=== PATIENT | female | born 1965 | race Caucasian/White ===

== ENCOUNTER 2016-11-17 20:12 | Inpatient (IN) | payer MEDICAID ==
[~2016-11-17] VITALS: Ht 167.6 cm; Wt 92.7 kg
--- NOTE | ~2016-11-17 | HP ---
PATIENT'S NAME: ISAIAS ESPINOZA [facility] AGE: 51 Y [address] ROOM: [id number] [place], [place] [address] LOCATION: GPCU ADMIT DATE: 11/17/2016 History & Physical DISCHARGE DATE: FAMILY PHYSICIAN: PHYSICIAN, UNKNOWN ATTENDING PHYSICIAN: MAGGI GOODMAN DATE OF SERVICE: CHIEF COMPLAINT: Polysubstance abuse and overdose with a suicide attempt. HISTORY OF PRESENT ILLNESS: This is a 51-year-old female who currently is lethargic and sleeping and cannot give any reliable history. The story is obtained from the medical chart and from the sign out given by the outside provider during the transfer. The story is that the patient has a long history of depression with multiple suicide attempts in the past from drug overdose. This time, patient was found by somebody at her home on the floor, drowsy, and confused, and the patient was brought to the outside facility for evaluation in [place]. Over there, on arrival, the patient was restless and combative requiring multiple doses of Ativan, where she got a total of 12 mg Ativan and then she got a CT of the head, which was unremarkable. Urine drug screen show she tested positive for marijuana, amphetamine, and methamphetamine. The patient was brought here for further care. Poison Control was already contacted by the outside provider and plan of care will be treating for amphetamine intoxication as well as possible Seroquel intoxication given that the patient has a history of taking Seroquel at home and has taken in excess in the past for suicidal attempts in the past. REVIEW OF SYSTEMS: Cannot obtain a full review of systems given that the patient is drowsy and sleepy right now and does not want to answer any questions. The review of system given to us by outside provider during transfer is that patient was combative and confused on arrival and after 12mg of ativan, patient became calm and sleepy. PAST MEDICAL HISTORY: 1. Hepatitis B and hepatitis C, not on treatment, follow up outpatient with primary care provider. 2. History of rectal carcinoma on chemotherapy and radiation. 3. Chronic lower back pain and chronic abdominal pain on opioids at home. 4. Depression. 5. Anxiety disorder. 6. Bipolar disorder. ALLERGIES: [facility] 51 Y [address] ROOM: [address] [place] [id number] LOCATION: GPCU ADMIT DATE: 11/17/2016 History & Physical DISCHARGE DATE: FAMILY PHYSICIAN: PHYSICIAN, UNKNOWN ATTENDING PHYSICIAN: MAGGI GOODMAN PENICILLIN, TRAMADOL, MELOXICAM, AND CEPHALOSPORIN, ALL THIS MEDICATION CAUSED HIVES. HOME MEDICATIONS: Currently, it is being reconciled. SOCIAL HISTORY: The patient is active cigarette smoker about half-pack per day for many years and denies any alcohol or any illegal drugs; however, she tested positive for amphetamine and also methamphetamine and marijuana on admission. FAMILY HISTORY: Father from suicide attempt and mother from brain aneurysm. PAST SURGICAL HISTORY: 1. Right knee surgery in the past. 2. Cholecystectomy. 3. Hysterectomy. PHYSICAL EXAMINATION: VITAL SIGNS: At the time of evaluation, respiration were 11, temperature was 98, blood pressure was 136/87, heart rate was 80, and saturation was 97% on 3 L nasal cannula. GENERAL APPEARANCE: The patient is sleepy and drowsy and would open her eyes to sternal rub. No facial droop. HEENT: Pupils about 3 mm bilaterally equal size and reactive to light. Anicteric sclerae. Nasal turbinates are normal bilaterally. Moist oral mucosa. NECK: No JVD. CARDIOVASCULAR. Regular rate and rhythm. Normal S1, S2. No murmur, no rubs, no gallops. RESPIRATORY: Clear. Chest wall nontender to palpation. No rales, no rhonchi, no wheezing, no crackles. ABDOMEN: Obese, soft, nontender, nondistended, bowel sounds present, and no mass. EXTREMITIES: No edema in upper or lower extremities. NEUROLOGICAL: The patient is sleepy and drowsy. Opens eyes to sternal rub, but does not want to talk and does not want to answer questions. There is no facial droop. There is no slurred speech when she does speak. Overall, I cannot perform a full neurological exam given that the patient does not cooperate. LABORATORY DATA: Currently, our labs are pending. Labs from the outside facility show a PATIENT'S NAME: ISAIAS ESPINOZA [facility] AGE: 51 Y [address] ROOM: [address] [address] LOCATION: GPCU ADMIT DATE: 11/17/2016 History & Physical DISCHARGE DATE: FAMILY PHYSICIAN: PHYSICIAN, UNKNOWN ATTENDING PHYSICIAN: MAGGI GOODMAN magnesium 1.3, lactic acid 2.4, aspirin level 3.5, Tylenol level 0, alcohol less than 3. INR 1.24. Urine drug screen positive for amphetamine, methamphetamine, and also marijuana. PTT 29.1, glucose 81, BUN 20, creatinine 1.12, total protein 7.3, albumin 3.7, calcium 9.0, total bilirubin 1.6, ALT 45, AST 63, sodium 136, potassium 3.4, chloride 100, CO2 20.7, GFR more than 60, anion gap 18.7, and alkaline phosphatase 82. CK-MB 14.4, troponin less than 0.02, myoglobin 498, and CPK 1080. White blood cells 18.06, hemoglobin 13.1, hematocrit 36.9, and platelet 234. IMAGING STUDIES: 1. EKG from the outside facility show QRS widening more than 120. Here a repeat EKG on arrival on November 17, 2016, at 11:02 p.m. shows sinus rhythm, heart rate of 94, QRS normal at 90 milliseconds, QTc normal at 436 milliseconds, NM normal at 141 milliseconds. No acute ischemic changes. 2. CT scan of the head without contrast performed from the outside facility on admission showed mild age-appropriate atrophy. No acute intracranial abnormality. ASSESSMENT AND PLAN: 1. Regarding her acute encephalopathy from polysubstance abuse from suicidal attempt from amphetamine overdose as well as perhaps also Seroquel, which is her home medication: Touch base with Poison Control. The plan will be supportive care with monitoring of EKG. We will be checking 3 times at later time to make sure there is no QRS prolongation from possible seroquel overdose. If there is QRS prolongation of more than 120 milliseconds then the treatment will need intravenous sodium bicarbonate drip. ETCO2 monitoring. Intravenous fluids for hydration. The QRS prolongation is a complication from the Seroquel overdose. EKG monitoring is also to check for QTC prolongation from seroquel. In regarding intoxication of amphetamine will be supportive care with telemetry monitoring and correct electrolytes to keep the potassium and magnesium within normal limits. We will check the liver function testing again at a later time. Also, I will check one more time of Tylenol and aspirin level at later time as well. Further plan will depend on clinical course. Also, Psychiatric consult for suicidal attempt evaluation. Suicidal precaution with one-on-one sitter in the room at all times. 2. Probable tardive dyskinesia: She exhibits symptoms consistent with tardive dyskinesia with involuntary tongue and body movements. Looking at her home medications, she chronically takes seroquel and has had several overdosing on seroquel in past as well. half-way use of seroquel could contribute to her symptoms likely consistent with tardive dyskinesia however seroquel is one of the antipsychotics along with clozapine to have the least incidence of TD but certainly still possible because it is an antipsychotic. May have to avoid antipsychotics or taper down. Will defer to psychiatry for evaluation and further management. Will use ativan or/and valium or/and clonazepam for agitation control. Will have to be cautious with seroquel since patient has had seroquel overdose in past for suicidal attempt and this time we are monitoring QRS for possible seroquel overdose again. May try trihexyphenidyl (anticholinergic) in patient with severe TD symtpoms refractory to benzodiazepines. Pending psychiatry consultation for further management. 3. Regarding her acute kidney injury from rhabdomyolysis: Intravenous fluids for hydration and this will fix the rhabdomyolysis. Flood catheter for strict urinary output monitoring. 4. Regarding her leukocytosis: Will get UA. The patient does not seem to be septic. We will check lactic acid and also procalcitonin. The leukocytosis is likely from the stress from polysubstance abuse and restless state. 5. Regarding her depression: Defer to Psychiatry for evaluation. PATIENT'S NAME: ISAIAS ESPINOZA [facility] AGE: 51 Y [address] ROOM: [place] [address] [facility] ADMIT DATE: 11/17/2016 History & Physical DISCHARGE DATE: FAMILY PHYSICIAN: PHYSICIAN, UNKNOWN ATTENDING PHYSICIAN: MAGGI GOODMAN 6. Regarding her anxiety disorder: The patient got a total of 12 mg of intravenous Ativan. She does take the Klonopin at home; therefore, I am not going to use flumazenil given that in the chronic benzodiazepine user if we give flumazenil can trigger seizure; therefore, I will avoid flumazenil at all cost. Currently, the patient is sleepy; therefore, I will avoid anymore narcotics, antipsychotic, or benzodiazepine. 7. Regarding her deep vein thrombosis prophylaxis: The patient will be on heparin subcutaneous 3 times a day. 8. She is a full code. 9. In addition, I will check a venous blood gas to if she is acidotic. Time spent in care on the day of admission 50 minutes, where 15 minutes was spent on chart review and the remainder of time spent in interview, physical examination, and also on counseling and also coordination of care with the Poison Control. I answered all the questions and concerns that the patient had and also I also went over the plan of care in detail with the nurse. Further plan will depend on clinical course. MD BARBARA BRUNER/shakira /[id number] D: [id number] T: [id number] HISTORY & PHYSICAL
--- NOTE | ~2016-11-17 | DS ---
PATIENT'S NAME: ISAIAS ESPINOZA [facility] AGE: 51 Y [address] ROOM: [place] [address] LOCATION: GPCU ADMIT DATE: 11/17/2016 Discharge Summary DISCHARGE DATE: 11/21/2016 FAMILY PHYSICIAN: Tiburcio Cordova MD ATTENDING PHYSICIAN: Shemar Loza PRIMARY DIAGNOSES: 1. Drug overdose, accidental. 2. Acute encephalopathy. 3. Polysubstance dependence. 4. Methamphetamine intoxication. 5. Chronic pain syndrome. 6. Opioid dependence. 7. Depression and anxiety. 8. Bipolar disorder. 9. Rectal cancer, status post chemotherapy and radiation treatment. 10. Hepatitis B, by history. 11. Hepatitis C, by history, untreated. 12. Obesity. 13. Moderate protein-calorie malnutrition. OPERATIONS/PROCEDURES: None. HISTORY OF PRESENTING ILLNESS AND REASON FOR ADMISSION: Please refer to the H and P dictated on 11/17/2016. HOSPITAL COURSE: The patient was admitted to the hospital as noted above with a presumptive diagnosis of drug overdose and associated acute encephalopathy. Initial drug screening revealed presence of opiates, THC, and methamphetamine. She does have a previous history of suicidal thinking and multiple previous suicide attempts. Clinical condition was initially stable. She did receive aggressive supportive cares. The Poison Control Center had been contacted. She received a variety of interventions including IV benzodiazepine therapy, Klonopin, and Valium. This was eventually Streamlined to IV Ativan only. She did also receive atypical antipsychotic therapy with IM Zyprexa. Oral trihexyphenidyl had been initiated, although this was stopped by day 2 of her hospital stay. She was hemodynamically stable over the course of her hospital stay. She was persistently lethargic for around 48 hours, but gradually became more arousable. By the third day, she was felt to be essentially at baseline. She was complaining of ongoing back pain and there was some concern for opioid withdrawal. She did receive some MS Contin, but this was changed back to her PATIENT'S NAME: ISAIAS ESPINOZA [facility] AGE: 51 Y [address] ROOM: [place] [address] LOCATION: GPCU ADMIT DATE: 11/17/2016 Discharge Summary DISCHARGE DATE: 11/21/2016 FAMILY PHYSICIAN: Tiburcio Cordova MD ATTENDING PHYSICIAN: Shemar Loaz home regimen of fentanyl transdermal patch. She requested an increase to her usual dose of 75 mcg and seemed to tolerate that well. By the end of the fourth day of her hospital stay, it was felt she would be stable enough for discharge to home with plans for close clinical followup with the primary care provider for ongoing pain of her chronic pain syndrome and opiate dependence as well as consideration for substance abuse treatment. We did request Psychiatry consultation here. After the patient became arousable, she denied any suicidal thinking, suicidal ideation, and flatly denied that she had intentionally overdosed on her medications. She did not discount the possibility that she could have accidentally received methamphetamine from one of her associates, but that she did not ingest this intentionally. She refused Psychiatry evaluation and refused inpatient psychiatric care. DISCHARGE INSTRUCTIONS: DIET: Regular as tolerated. ACTIVITY: As tolerated. MEDICATIONS: 1. Fentanyl transdermal patch 75 mcg, apply and change q.72 hours as needed for pain. 2. Duloxetine 60 mg p.o. daily. 3. Levothyroxine 50 mcg p.o. daily. 4. Lorazepam 0.5 mg p.o. t.i.d. p.r.n. for anxiety. 5. Zofran 4 mg p.o. q.i.d. p.r.n. for nausea. 6. Nicotine transdermal patch 21 mg, apply and change daily. 7. Bentyl 20 mg p.o. q.i.d. 8. Acetaminophen 650 mg p.o. q.4 hours p.r.n. for pain or fever. FOLLOWUP: She will follow up with Dr. Cordova in 3 to 5 days. CONDITION ON DISCHARGE: Fair. Total time spent on discharge process 45 minutes. MD LISA JOSEPH/shakira PATIENT'S NAME: ISAIAS ESPINOZA [facility] AGE: 51 Y [address] ROOM: [id number] [place], [place] [address] LOCATION: GPCU ADMIT DATE: 11/17/2016 Discharge Summary DISCHARGE DATE: 11/21/2016 FAMILY PHYSICIAN: Tiburcio Cordova MD ATTENDING PHYSICIAN: Shemar Loza /[id number] d: 11/22/16 0359 t: 11/23/16 1440, DISCHARGE SUMMARY
[~2016-11-17 20:12] MED LIST: ATIVAN 0.5MG0.5 MG PO; BACTRIM DS1 TAB PO; BENEFIBER1 EAC1 PO; BENTYL20 MG PO; CYMBALTA60 MG PO; DESYREL50 MG PO; DILAUDID 4MG4 MG PO; DURAGESIC1 EAC1 TRANS; KLONOPIN0.5 MG PO; KLONOPIN1 M1 PO; LEVOTHROID (SY50 MCG PO; LYRICA 50MG CAP50 MG PO; MINIPRESS2 MG PO; MS CONTIN15 MG PO; MS CONTIN30 MG PO; MS CONTIN60 MG PO; NICODERM (HABIT14 MG TRANS; NICODERM / HABIT7 MG TRANS; NICODERM/HABITR21 MG TRANS; QUETIAPINE FUM100 MG PO; RISPERDAL1 MG PO; ROBAXIN750 MG PO; SEROQUEL100 MG PO; SEROQUEL25 MG PO; SEROQUEL300 MG PO; SEROQUEL50 MG PO; SSD (THERMAZENE25 GM TOP; VISTARIL50 MG PO; ZOFRAN4 MG PO
[2016-11-17 23:32] LABS: BILIRUBIN URINE NEGATIVE (NEGATIVE); BLOOD URINE 10 /UL (NEGATIVE); COLOR URINE YELLOW (YELLOW); GLUCOSE URINE NEGATIVE (NEGATIVE); KETONE URINE 50 mg/dL (NEGATIVE); LEUKOCYTES URINE NEGATIVE /UL (NEGATIVE); NITRITE URINE NEGATIVE (NEGATIVE); PROTEIN URINE 15 mg/dL (NEGATIVE); TURBIDITY URINE CLEAR (CLEAR); UROBILINOGEN URINE NORMAL (NORMAL)
[2016-11-17 23:43] LABS: GRANULAR CASTS URINE RARE #/LPF (NEGATIVE); HYALINE CAST URINE RARE #/LPF (NEGATIVE)
[2016-11-17 23:46] LABS: BACTERIA URINE NEGATIVE (NEGATIVE); EPITHELIAL URINE 0-2 #/HPF (NEGATIVE); RBC URINE 0-2 #/HPF (NEGATIVE); WBC URINE 0-2 #/HPF (NEGATIVE)
[2016-11-17 23:52] LABS: AMPHETAMINE POSITIVE (NEGATIVE); BARBITURATE NEGATIVE (NEGATIVE); COCAINE NEGATIVE (NEGATIVE); OPIATES NEGATIVE (NEGATIVE)
[2016-11-17 23:58] LABS: BICARBONATE 24.1 mmol/L (18.0-23.0); LACTATE 0.9 mEq/L (0.50-1.60); PCO2 49 mmHg (35-45); PO2 118 mmHg (80-90)
[2016-11-17 23:59] LABS: BASOPHIL % 0.3 %; EOSINOPHIL % 0.1 %; HEMATOCRIT 35.2 % (33.0-46.0); HEMOGLOBIN 12.5 g/dL (10.0-15.0); IMMATURE GRANULOCYTE # 0.1 K/uL (0.0-0.3); IMMATURE GRANULOCYTE % 0.5 %; LYMPHOCYTE # 2.4 K/uL (0.8-4.0); LYMPHOCYTE % 15.5 %; MCHC 35.5 gm/dL (32.0-36.5); MCV 92.9 fl (83.0-98.0); MONOCYTE # 1.6 K/uL (0.0-1.0); MONOCYTE % 10.5 %; NEUTROPHIL # (ANC) 11.1 K/uL (1.8-7.8); NEUTROPHIL % 73.1 %; NRBC % 0 /100WBC (0-0.00); RBC 3.79 M/uL (3.50-5.50); RDW-CV 12.8 % (11.9-14.6); WBC 15.2 K/uL (4.0-11.0)
[2016-11-18 00:11] LABS: INR - (THERAPEUTIC) 1.11 (0.92-1.07); PROTIME 11.7 SECONDS (9.8-11.4); PTT 24 SECONDS (25-32)
[2016-11-18 00:22] LABS: ALBUMIN 3.2 gm/dL (3.5-5.0); ALK PHOS 71 IU/L (33-138); ALT 40 IU/L (12-78); ANION GAP 10.9 (10.0-19.0); AST 63 IU/L (10-40); BLOOD UREA NITROGEN 13 mg/dL (6-24); CHLORIDE 108 mMol/L (96-110); CO2 24 mMol/L (22-32); CREATININE 0.7 mg/dL (0.5-1.1); MAGNESIUM 2.4 mg/dL (1.8-2.6); PHOSPHORUS 1.9 mg/dL (2.5-4.9); POTASSIUM 3.9 mMol/L (3.7-5.1); SODIUM 139 mMol/L (135-145); TOTAL BILIRUBIN 1.2 mg/dL (0.0-1.5); TOTAL PROTEIN 6.8 g/dL (6.0-8.4)
[2016-11-18 00:31] LABS: PLATELET COUNT 188 K/uL (150-450)
[2016-11-18 00:34] LABS: CPK 1176 IU/L (21-215)
--- NOTE | 2016-11-18 02:57 | NUR ---
PATIENT WAS A DIRECT ADMIT FROM [facility] ER AND CAME HER VIA CART/AMBULANCE. VSS. LEFT CHEST PORT ACCESSED AND IVF RUNNING. PATIENT CALM/COOPERATIVE AT THIS TIME BUT BECOMES CONFUSED/DISORIENTED WHEN WAKE UP. PATIENT WAS BROUGHT TO [facility] ER BY [facility] FOR POSSIBLE DRUG OVERDOSE. PATIENT HAD RECENT INCREASE IN [facility]. PATIENT FOUND TO BE DISORIENTED, UNCOOPERATIVE, AGITATED, AND CONFUSED. I WAS ALSO GIVEN IN REPORT FROM [facility] THAT THE PATIENT WAS EXPERIENCING HALLUCINATIONS UPON ARRIVAL AND WAS THRASHING AT STAFF. A TOTAL OF 16MG IV/IM ATIVAN WAS GIVEN IN [facility]D ER. THEY WERE ABLE TO DO A HEAD CT WHICH CAME BACK NEGATIVE. K WAS 3.4 AND MG 1.3 SO PATIENT WAS REPLACED WITH 2G MG AND 20 MEQ IV K+. URINE DRUG SCREEN WAS DONE THAT SHOWED POSITIVE RESULTS FOR METH AND MARIJUANA. PATIENT TRANSFERRED HERE FOR HIGHER LEVEL OF CARE. HAS PAST MEDICAL HISTORY OF BIPOLARISM, DEPRESSION, RECTAL CANCER, AND HEPATITIS B AND C. PATIENT PLACED IN 1:1 AND PHYSICIAN NOTIFIED OF PATIENT ARRIVAL TO THE FLOOR.
--- NOTE | 2016-11-18 03:46 | NUR ---
D: PT ARRIVED TO UNIT PER EMS. HEAVILY SEDATED. PT WILL AROUSE WITH PHYSICAL STIMULI, BECOME RESTELSS, THEN WILL GO BACK TO SEDATION. UNALBE TO OBTAIN ANY HISTORY FROM THE PATIENT. DATA BASE COMPLEDTED FROM PRIOR ADMISSION AND FROM THE MEDICAL RECORDS SENT FROM [facility]. HX OF RECTAL CA WITH CHEMO AND RADATION, CHRONIC ABD PAIN, OPIOID ADDICTION AND ABUSE, HEPATITIS B AND C, ALCHOLISIM, DEPRESSION, BI-POLAR DISORDER, ANXIETY. URINE DRUG SCREEN: +AMPHETAMINE, METHAMPHETAMINE, THC RECEIVED A TOTAL OF 16 MG ATIVAN BEFORE LEAVING [facility]. DAYDAY WRIST RESTRAINTS APPLIED ON ADMISSION.
[2016-11-18] MEDS ORDERED: ATIVAN 0.5MG0.5 MG PO (04:05)
[2016-11-18] MEDS ORDERED: ZOFRAN4 MG PO (04:06)
[2016-11-18] MEDS ORDERED: MORPHINE SULFAT60 M1 PO (04:06)
[2016-11-18] MEDS ORDERED: BENTYL10 MG PO (04:07)
--- NOTE | 2016-11-18 05:36 | NUR ---
Significant Event: PATIENT SEDATED BUT NOW MORE AWAKE AND ORIENTED TO TIME/PLACE BUT DISORIENTED TO PLACE. PATIENT IS RESTLESS, AGITATED, AND APPREHENSIVE. 1MG IVP ATIVAN GIVEN X1 AND 5MG IM ZYPREXA GIVEN X1. VSS. HR 90-100'S. SBP 110'S. AFEBRILE. 02 SATS IN MID 90'S ON 3L 02 PER NC. C/O CHRONIC ABDOMINAL/BACK PAIN. LUNGS CLEAR/DIM THROUGHOUT. WRIST RESTRAINTS ON R/T BEING UNCOOPERATIVE AND RISK OF HARM TO SELF/STAFF. BOWELS HYPOACTIVE. MARES PLACED WITH 350 ML UOP. C/O OF INABILITY TO URINATE. HAS SCATTERED SCAB/SCARS TO BILATER LOWER EXTREMITIES. RIGHT UNDER BREASTS. LEFT CHEST PORST WITH D5LR AT 100 ML/HR. Follow up: AM PAULA CONSULT. CONTINUE TO MONITOR PER PLAN OF CARE.
[2016-11-18 09:27] LABS: HEMATOCRIT 30.6 % (33.0-46.0); HEMOGLOBIN 10.8 g/dL (10.0-15.0); MCHC 35.3 gm/dL (32.0-36.5); MCV 93.6 fl (83.0-98.0); RBC 3.27 M/uL (3.50-5.50); RDW-CV 12.9 % (11.9-14.6); WBC 10.1 K/uL (4.0-11.0)
[2016-11-18 09:46] LABS: ANION GAP 9.2 (10.0-19.0); BLOOD UREA NITROGEN 9 mg/dL (6-24); CALCIUM 7.7 mg/dL (8.5-10.5); CHLORIDE 110 mMol/L (96-110); CO2 25 mMol/L (22-32); CREATININE 0.6 mg/dL (0.5-1.1); MAGNESIUM 2.1 mg/dL (1.8-2.6); POTASSIUM 3.2 mMol/L (3.7-5.1); SODIUM 141 mMol/L (135-145)
[2016-11-18 09:51] LABS: ALBUMIN 2.6 gm/dL (3.5-5.0); TOTAL PROTEIN 5.8 g/dL (6.0-8.4)
[2016-11-18 09:52] LABS: TOTAL BILIRUBIN 0.8 mg/dL (0.0-1.5)
--- NOTE | 2016-11-18 17:27 | NUR ---
POISON CONTROL FOLLOWED UP WITH PT'S. CONDITION.
--- NOTE | 2016-11-18 18:27 | NUR ---
Significant Event: PATIENT AFEBRILE. VSS. PATIENT HAS SURGICAL INCISIONS X3 COVERED WITH TEGADERM AND GAUZE. THE RIGHT MOST DRESSING HAS A SMALL AMOUNT OF DRIED BLOOD. I WAS DIRECTED BY PRECEPTOR NOT TO CHANGE IT BECAUSE IT IS A SURGICAL SITE. LUNGS HAVE BEEN CLEAR AND DIMINISHED. BOWEL SOUNDS HAVE BEEN RARE THIS SHIFT. PATIENT NOT ON TELEMETRY. PATIENT OFF ALL MONITORS EXCEPT WHEN BEING ASSESSED. PATIENT HAS BEEN COMPLAINING OF ABDOMINAL PAIN WHICH SHE RATES AT 3 ON A SCALE OF 0-10. PATIENT HAS BEEN REQUESTING NORCO AND STATES THAT IT JUST SEEMS TO WORK BETTER. SHE HAS BEEN ASKING FOR THE NORCO CLOSE TO EVERY FOUR HOURS BECAUSE SHE STATES THAT HER DOCTOR ENCOURAGED HER TO STAY ON TOP OF HER PAIN. PATIENT MARES HAS ONLY DRAINED 200 MLS THIS SHIFT OF DARK RED BLOOD WITH CLOTS. DOCTOR WAS INFORMED AND ORDER TO IRRIGATE MARES WAS OBTAINED. SOME CLOTS WERE FLUSHED WITH IRRIGATION. PATIENT HAS HAD 4 BMS THIS SHIFT ALL WATERY CONSISTANCY. PATIENT WAS SHOWERED THIS AM. PATIENT HAS GENERALIZED 3+ EDEMA. PATIENT HAS ALLYVEN DRESSINGS X2 TO R) FOREARM THAT SHE REPORTS ARE SKIN TEARS. SHE ALSO HAS REDNESS AND RASH TO GROIN FOLDS. PORT TO R) CHEST FLUSHES WELL AND HAS GOOD BLOOD RETURN. PATIENT HAS NOT EATEN OR DRANK WELL THIS SHIFT. SHE WILL TAKE A FEW BITES OF YOGURT WITH PROMPTING. Follow up:
--- NOTE | 2016-11-18 18:49 | NUR ---
Significant Event: PATIENT HAD LOW BLOOD PRESSURES THIS MORNING, CHARTED IN VITAL SIGNS. CUFF WAS ON LOWER RIGHT ARM AND MOVED TO UPPER RIGHT ARM TO OBTAIN BETTER BLOOD PRESSURES. PATIENT FLUCTUATES FROM ONLY BEING ORIENTED TO SELF TO BEING ORIENTED TO SELF AND TIME. PATIENT WAS NEVER ABLE TO TELL US WHERE SHE WAS. SAVEHAART FAIL X3. PATIENT ON 3 L O2 CONTINIOUS VIA NC THIS SHIFT. PATIENT ALSO ON ETCO2. PORT TO L) CHEST INFUSING WELL. REDNESS TO BREAST FOLDS AND SCABS TO BILATERAL LOWER EXTREMETIES. MARES ONLY DRAINED 175 MLS THIS SHIFT. PATIENT COMPLAINING OF ABDOMNIAL PAIN THIS SHIFT AND UPON PALPATION. PATIENT REPEATEDLY STATING SHE NEEDED TO URINATE. PATIENT WAS BLADDER SCANNED MULTIPLE TIMES THIS SHIFT. UPON DOCTOR ORDERS, MARES WAS IRRIGATED WITH NO URINE. DOCTOR THEN DIRECTED TO REMOVE MARES AND REESTABLISH NEW ONE. NO URINE DRAINAGE AFTER NEW MARES PLACED. ORDER FOR ULTRASOUND OBTAINED AND COMPLETED. PATIENT HAS BEEN VERY AGITATED THIS SHIFT. PATIENT ALSO HALLUCINATING AT TIMES. BILATERAL WRIST RESTRAINTS IN PLACE CONTINUALLY ASSESSED AND LOOSENED PRN. PATIENT HAS HAD 1:1 SITTER THIS SHIFT AND HAS BEEN EATING AND DRINKING WELL. PATIENT COMPLAINS OF PAIN TO LABIA AND SWELLING IS PRESENT. PATIENT REPORTS HISTORY OF RADIATION TO THE AREA. Follow up:
[2016-11-19 00:51] LABS: BASOPHIL % 0.3 %; EOSINOPHIL # 0.1 K/uL (0.0-0.5); EOSINOPHIL % 0.6 %; HEMOGLOBIN 11.3 g/dL (10.0-15.0); IMMATURE GRANULOCYTE % 0.5 %; LYMPHOCYTE # 2.1 K/uL (0.8-4.0); LYMPHOCYTE % 23.9 %; MCH 32.5 pg (27.0-34.0); MCHC 34.2 gm/dL (32.0-36.5); MCV 94.8 fl (83.0-98.0); MONOCYTE # 1.2 K/uL (0.0-1.0); MONOCYTE % 13.2 %; MPV 9.5 fl (9.4-12.4); NEUTROPHIL # (ANC) 5.4 K/uL (1.8-7.8); NEUTROPHIL % 61.5 %; NRBC % 0 /100WBC (0-0.00); PLATELET COUNT 163 K/uL (150-450); RBC 3.48 M/uL (3.50-5.50); RDW-CV 13.2 % (11.9-14.6); WBC 8.7 K/uL (4.0-11.0)
[2016-11-19 01:09] LABS: ALBUMIN 2.8 gm/dL (3.5-5.0); ALK PHOS 63 IU/L (33-138); ALT 39 IU/L (12-78); AST 48 IU/L (10-40); BLOOD UREA NITROGEN 7 mg/dL (6-24); CALCIUM 7.6 mg/dL (8.5-10.5); CHLORIDE 110 mMol/L (96-110); CO2 25 mMol/L (22-32); CPK 636 IU/L (21-215); CREATININE 0.7 mg/dL (0.5-1.1); SODIUM 140 mMol/L (135-145); TOTAL PROTEIN 6.3 g/dL (6.0-8.4)
[2016-11-19 01:13] LABS: TOTAL BILIRUBIN 0.4 mg/dL (0.0-1.5)
[2016-11-19 05:13] LABS: BILIRUBIN URINE NEGATIVE (NEGATIVE); BLOOD URINE 50 /UL (NEGATIVE); COLOR URINE YELLOW (YELLOW); GLUCOSE URINE NEGATIVE (NEGATIVE); KETONE URINE 5 mg/dL (NEGATIVE); LEUKOCYTES URINE 500 /UL (NEGATIVE); NITRITE URINE NEGATIVE (NEGATIVE); PROTEIN URINE 15 mg/dL (NEGATIVE); TURBIDITY URINE CLEAR (CLEAR); UROBILINOGEN URINE 1 mg/dL (NORMAL)
[2016-11-19 05:21] LABS: BACTERIA URINE FEW (NEGATIVE); WBC URINE 20-50 #/HPF (NEGATIVE)
--- NOTE | 2016-11-19 05:32 | NUR ---
1:1. B) WRIST RESTRAINTS REMOVED THIS SHIFT. L) CHEST PORT RUNNING NS @ 75. IV ABX 1 DOSE GIVEN. UOP INCREASED THIS SHIFT, 600ML OUT OUT. MARES. UA AND BLOOD CULTURES THIS SHIFT. TEMP OF 102.1 AT 2315. TYLENOL ORDERED, ICE PACKS GIVEN.
[2016-11-19 08:57] LABS: ALBUMIN 2.7 gm/dL (3.5-5.0); BLOOD UREA NITROGEN 6 mg/dL (6-24); CHLORIDE 109 mMol/L (96-110); CO2 27 mMol/L (22-32); CREATININE 0.5 mg/dL (0.5-1.1); PHOSPHORUS 2.7 mg/dL (2.5-4.9); SODIUM 142 mMol/L (135-145)
[2016-11-19 08:58] LABS: CALCIUM 7.2 mg/dL (8.5-10.5)
--- NOTE | 2016-11-19 17:57 | NUR ---
Significant Event: Disoriented to time/place. SBP-90-100s. P-80-90s. Afebrile. 2L NC with saturations in the low to mid 90s. ECTO2 36-51. L) chest port infusing NS at 75ml/hr. Up with SBA. 1:1 supervision for suicial ideations. Flood had 2525ml of clear yellow urine out this shift.
[2016-11-20 03:57] LABS: ALBUMIN 2.2 gm/dL (3.5-5.0); ALK PHOS 53 IU/L (33-138); ALT 31 IU/L (12-78); AST 32 IU/L (10-40); BLOOD UREA NITROGEN 7 mg/dL (6-24); CHLORIDE 112 mMol/L (96-110); CO2 28 mMol/L (22-32); CREATININE 0.5 mg/dL (0.5-1.1); POTASSIUM 3.7 mMol/L (3.7-5.1); TOTAL BILIRUBIN 0.4 mg/dL (0.0-1.5); TOTAL PROTEIN 5.5 g/dL (6.0-8.4)
[2016-11-20 04:06] LABS: ANION GAP 9.7 (10.0-19.0); CALCIUM 7.2 mg/dL (8.5-10.5); SODIUM 146 mMol/L (135-145)
[2016-11-20 04:49] LABS: BASOPHIL % 0.2 %; EOSINOPHIL # 0.1 K/uL (0.0-0.5); EOSINOPHIL % 1.3 %; HEMATOCRIT 30.6 % (33.0-46.0); HEMOGLOBIN 10.4 g/dL (10.0-15.0); IMMATURE GRANULOCYTE % 0.4 %; LYMPHOCYTE # 1.5 K/uL (0.8-4.0); LYMPHOCYTE % 32.5 %; MCH 32.7 pg (27.0-34.0); MCV 96.2 fl (83.0-98.0); MONOCYTE # 0.6 K/uL (0.0-1.0); MONOCYTE % 13.1 %; MPV 10.4 fl (9.4-12.4); NEUTROPHIL # (ANC) 2.5 K/uL (1.8-7.8); NEUTROPHIL % 52.5 %; NRBC % 0 /100WBC (0-0.00); PLATELET COUNT 148 K/uL (150-450); RBC 3.18 M/uL (3.50-5.50); RDW-CV 13.1 % (11.9-14.6); WBC 4.7 K/uL (4.0-11.0)
--- NOTE | 2016-11-20 05:43 | NUR ---
Significant Event: PT ALERT TO PERSON, WAS ORIENTED TO PLACE AND ASKED WHY SHE WAS HERE, AND WHERE HER BELONGINGS WERE. STATED SHE WAS FEELING ANXIOUS AND HAVING PAIN AT 6 OUT OF 10, IN HER BACK. ROUTINE ATIVAN AND MSCONTIN GIVEN. PT WAS CALM AND RESTED THROUGH THE NIGHT. PT WILL RESPOND AND EASY TO AROUSE WHEN SPOKEN TO. CHEST PORT RUNNING NS AT 75ML/HR. MARES UOP 550. PT DENIES THOUGHTS OF SUICIDE, PT STILL 1:1 OBSERVATION. VS SBP 110-130 HR 90'S SATS 93% ON 2L NC. AFEBRILE. Follow up: FOLLOW CARE PLAN
--- NOTE | 2016-11-20 12:30 | NUR ---
Reviewed chart, per nursing notes pt alert and oriented overnight. Per physician progress notes hospitalist talked with psychiatrist and no indication for psych consult or inpatient psychiatric hospitalization. Introduced self and care management services to patient. Lives in [place] alone in public housing. Asked her what her plan is on discharge and she says she will go home. Asked if she has concerns about discharge or concerns about going home and she does not. Asked if she has anyone who can check on her and help her if needed and she tells me she has lots of family in [place], has lived there all her life. Asked her who will help her and she says she talks with her cousin Larissa every day and she has a friend who lives at public housing and they help each other. She says Larissa will come get her on discharge. Asked if she is seeing a counselor and she says no. Asked her if she is interested in seeing a counselor and she says yes she is but just hasn't found one yet. Offered to find counseling services in or near [place] and she says she won't see anyone in [place] because she doesn't want everyone knowing her business. Asked where she would be willing to go to see a counselor and she says [place] is close enough to go to, told her I will see if I can find resources for her in [place]. Did internet search and found 2 options for mental health counseling in [place], [facility] [phone] and Sofia Mendez [facility] [phone], will give these to patient and offer to set up an appointment for her if she will let me. Will follow.
--- NOTE | 2016-11-20 16:18 | NUR ---
Significant Event: A/Ox3. Forgetful at times. Some visual hallucinations noted this AM. Mild tremors to B)hands. Patient is anxious and agitated. MS cotin Discontinued. Fentynal started patch applied to R) UA. Patient get scheduled ativan TID. Flood discontinued and patient has voided since adequatley. PT/OT consulted. 1:1 discontinued. Diet advanced to regular as tolerated. Possibly home tomorrow or to [facility].
--- NOTE | 2016-11-21 04:49 | NUR ---
Significant Event: Patient alert and oriented x3. Forgetful at times. Vital signs stable. On RA-2L. Patient had bloody nose after third assessment. Refused supplemental O2 since. Complained of back pain 7/10 throughout shift. Tylenol given with no relief. Patient slept well this shift. Up with stand-by assist and gait belt. NS continues at 75ml/hr to left chest port. Good uop. Calm and cooperative with all cares. Follow up: Home today?
[2016-11-21] MEDS ORDERED: NICODERM / HABIT7 MG TRANS (11:16)
[2016-11-21] MEDS ORDERED: TYLENOL325 MG PO (11:19)
[2016-11-21] MEDS ORDERED: DURAGESIC 75MC75 MCG TRANS (11:23)
--- NOTE | 2016-11-21 12:35 | NUR ---
Reviewed chart and talked with patient. Going home today. I called and set up appointment with mental health counselor Umm Israel for tomorrow at 1100, Umm talked with patient on the phone, has seen her in the past, pt agreeable to this.
--- NOTE | 2016-11-21 15:39 | NUR ---
PATIENT HAS BEEN CALM AND PLEASANT BUT READY TO GO HOME SINCE RN WALKED INTO ROOM THIS AM. SHE IS AAOX2. SHE THOUGHT IT WAS SATURDAY OR SATURDAY. SHE MOVES ALL EXTREMITITES WITH NO ISSUES AND FOLLOWS COMMANDS. SHE IS AFEBRILE. BLOOD PRESSURE READINGS WERE A BIT HIGH THIS AM. ROOM AIR THIS MORNING, REFUSED NC WHEN SATS GOT A BIT LOW WHILE SLEEPING LAST NIGHT. SHE SHOWS NO SIGNS OF AGITATION OR AGGRESSION. PATIENT IS ON A REGUALR DIET. SHE ORDERED BREAKFAST BUT LOST HER APPETITE. SHE DID EAT MOST OF HER LUNCH AND HAS HOT TEA. SHE HAS COMPLAINED OF BACK PAIN BUT DENIES PAIN ANYWHERE ELSE AND HAS NOT COMPLAINED OF NAUSEA. SHE VOID TO [facility] WITH NO ISSUES. SHE HAS A LEFT CHEST PORT. NS WAS D/C'D THIS AM. PATIENT IS AWAITING RIDE. SHE HAS HER PERSCRIPTION LIST AND APPOINTMENT LIST.
== END 2016-11-21 11:06 | disposition disaster alternative care site (69) | DRG 917 ==
LOC: GPCU 20:12
PROVIDERS: Family Medicine; ADMIT Internal Medicine
DX: T43.622A Poisoning by amphetamines, intentional self-harm, initial encounter (principal); G93.40 Encephalopathy, unspecified; E44.0 Moderate protein-calorie malnutrition; F19.20 Other psychoactive substance dependence, uncomplicated; M62.82 Rhabdomyolysis; F15.229 Other stimulant dependence with intoxication, unspecified; G89.4 Chronic pain syndrome; F41.8 Other specified anxiety disorders; F32.9 Major depressive disorder, single episode, unspecified; Z86.19 Personal history of other infectious and parasitic diseases; B19.20 Unspecified viral hepatitis C without hepatic coma; E66.9 Obesity, unspecified; Z68.31 Body mass index [BMI] 31.0-31.9, adult; G24.01 Drug induced subacute dyskinesia; Z85.048 Personal history of other malignant neoplasm of rectum, rectosigmoid junction, and anus; Z92.21 Personal history of antineoplastic chemotherapy
CPT/HCPCS: G0480; J1642; J1644; J1940; J2060; J2185; J3360; J7030; J7040; J7050; J7121; Q0162